=== PATIENT | female | born 1990 | race African-American/Black ===

== ENCOUNTER 2018-08-08 15:41 | Emergency (ER) | payer OTHER ==
[~2018-08-08 15:41] MED LIST: LEVO500T2 PO
== END 2018-08-08 18:06 | disposition left against medical advice (07) ==
LOC: ER 15:41
DX: Z53.21 Procedure and treatment not carried out due to patient leaving prior to being seen by health care provider (principal)

== ENCOUNTER 2020-06-07 10:16 | Observation (INO) | payer OTHER ==
[~2020-06-07] VITALS: Ht 149.9 cm; Wt 53.5 kg
[2020-06-07] MEDS ORDERED: TERBUTALINE SULFATE 1MG/ML VIAL SUBCUT PRN (12:25)
[2020-06-07 12:46] LABS: CLARITY URINE CLEAR (CLEAR); COLOR URINE YELLOW (YELLOW); KETONES URINE NEGATIVE (NEGATIVE); LEUKOCYTE ESTERASE URINE 1+ (NEGATIVE); NITRITE URINE NEGATIVE (NEGATIVE); OCCULT BLOOD URINE TRACE (NEGATIVE); PROTEIN URINE NEGATIVE (NEGATIVE); SPECIFIC GRAVITY URINE 1.009 (1.005-1.030); UROBILINOGEN URINE 0.2 E.U./dL (0.2-1.0)
[2020-06-07 12:47] LABS: BASOPHILS % 0.6 % (0.0-2.0); HEMATOCRIT. 36.8 % (36.0-48.0); HEMOGLOBIN. 11.9 g/dL (12.0-16.0); LYMPHOCYTES % 21.2 % (20.0-50.0); MEAN CORPUSCULAR HEMOGLOBIN 27.4 pg (28.0-32.0); MEAN CORPUSCULAR VOLUME 84.3 fL (81.0-99.0); MEAN PLATELET VOLUME 9.2 fl (7.4-10.4); MONOCYTES % 7.7 % (2.0-8.0); NEUTROPHILS % 69.5 % (40.0-76.0); PLATELET 271 x1000/uL (130-400); RED BLOOD CELL COUNT 4.36 mill/uL (4.2-5.4); RED CELL DISTRIBUTION WIDTH 14.1 % (11.6-14.6)
[2020-06-07 13:01] LABS: *AMPHETAMINES SCREEN URINE NEGATIVE (NEGATIVE); *BARBITURATES SCREEN URINE NEGATIVE (NEGATIVE); *BENZODIAZEPINES SCREEN URINE NEGATIVE (NEGATIVE)
[2020-06-07 13:02] LABS: *COCAINE SCREEN URINE NEGATIVE (NEGATIVE); METHADONE URINE SCREEN NEGATIVE (NEGATIVE)
[2020-06-07 13:04] LABS: OPIATES URINE SCREEN NEGATIVE (NEGATIVE); PHENCYCLIDINE URINE SCREEN NEGATIVE (NEGATIVE)
[2020-06-07 13:09] LABS: CANNABINOID URINE SCREEN PRESUMTIVE POSITIVE (NEGATIVE)
[2020-06-07] MEDS: LACTATED RINGERS 1,000 ML IV SCH (13:54)
[2020-06-07] MEDS ORDERED: PNV1TABL76 MT (15:36)
== END 2020-06-07 15:30 | disposition home or self-care (01) ==
LOC: 8 EST LDRP 10:16 → 8 EST A/PP 13:10
PROVIDERS: ADMIT Obstetrics & Gynecology; ATTEND Obstetrics & Gynecology
DX: O26.893 Other specified pregnancy related conditions, third trimester (principal); R10.11 Right upper quadrant pain; Z3A.34 34 weeks gestation of pregnancy; Z79.899 Other long term (current) drug therapy
CPT/HCPCS: 36415; 59025; 76705; 76805; 76818; 80305; 80349; 81003; 82731; 85025; 96360; 96361; 96372; G0378; J3105; J7120; 99281

== ENCOUNTER 2020-06-18 15:44 | Observation (INO) | payer OTHER ==
[~2020-06-18] VITALS: Ht 147.3 cm; Wt 52.6 kg
[~2020-06-18 15:44] MED LIST changes: -LEVO500T2 PO; +PNV1TABL76 MT
[2020-06-18] MEDS ORDERED: DIPHENHYDRAMINE 25MG CAPSULE PO PRN (17:30)
[2020-06-18 17:44] LABS: CHLORIDE 105 mEq/L (98-107)
== END 2020-06-18 21:15 | disposition home or self-care (01) ==
LOC: 8 EST LDRP 15:44
PROVIDERS: ADMIT Obstetrics & Gynecology; ATTEND Obstetrics & Gynecology
DX: O99.713 Diseases of the skin and subcutaneous tissue complicating pregnancy, third trimester (principal); T78.49XA Other allergy, initial encounter; Z3A.36 36 weeks gestation of pregnancy
CPT/HCPCS: 36415; 59025; 76805; 76818; 80053; 84550; G0378; Q0163; 99281

== ENCOUNTER 2020-07-04 10:37 | Observation (INO) | payer OTHER ==
[~2020-07-04] VITALS: Ht 147.3 cm; Wt 54.4 kg
[2020-07-04] MEDS ORDERED: CEPH250C2 PO (22:43)
== END 2020-07-04 13:30 | disposition home or self-care (01) ==
LOC: 8 EST LDRP 10:37
PROVIDERS: ADMIT Obstetrics & Gynecology; ATTEND Obstetrics & Gynecology
DX: O42.92 Full-term premature rupture of membranes, unspecified as to length of time between rupture and onset of labor (principal); Z3A.38 38 weeks gestation of pregnancy
CPT/HCPCS: 59025; 76805; 76818; G0378; 99281

== ENCOUNTER 2020-07-04 18:31 | Inpatient (IN) | payer OTHER ==
[~2020-07-04] VITALS: Ht 147.3 cm; Wt 53.5 kg
[2020-07-04] MEDS ORDERED: CEPH250C2 PO (22:43)
[2020-07-04] MEDS ORDERED: LIDOCAINE HCL 1% 20ML VIAL (Pyxis) INJ INFIL SCH (22:45)
[2020-07-04] MEDS ORDERED: NALOXONE HCL 0.4 MG/ML 1ML VIAL IM PRN (22:45)
[2020-07-04] MEDS ORDERED: BUTORPHANOL TARTRATE 2 MG/ML VIAL IV PRN (22:45)
[2020-07-04] MEDS ORDERED: DEXT 5%/LR + PITOCIN 20UNITS/L 1,000 ML IV SCH (22:45)
[2020-07-04] MEDS ORDERED: LACTATED RINGERS 1,000 ML IV SCH (22:45)
[2020-07-04] MEDS ORDERED: CARBOPROST TROMETHAMINE 250 MCG/ML AMPUL IM PRN (22:45)
[2020-07-04] MEDS ORDERED: METHYLERGONOVINE MALEATE 0.2 MG/ML IM PRN (22:45)
[2020-07-04] MEDS ORDERED: PENICILLIN G POTASSIUM 5 MMU in DEXT 5% WATER 100 ML IV SCH (23:00)
[2020-07-04 23:29] LABS: BASOPHILS % 0.3 % (0.0-2.0); EOSINOPHILS % 1.1 % (0.0-5.0); HEMATOCRIT. 36.3 % (36.0-48.0); LYMPHOCYTES % 22.3 % (20.0-50.0); MEAN CORPUSCULAR HEMOGLOBIN 27.2 pg (28.0-32.0); MEAN CORPUSCULAR VOLUME 82.4 fL (81.0-99.0); MEAN PLATELET VOLUME 9.3 fl (7.4-10.4); MONOCYTES % 9.2 % (2.0-8.0); NEUTROPHILS % 67.1 % (40.0-76.0); PLATELET 307 x1000/uL (130-400)
[2020-07-04 23:34] LABS: CLARITY URINE CLEAR (CLEAR); COLOR URINE YELLOW (YELLOW); KETONES URINE NEGATIVE (NEGATIVE); LEUKOCYTE ESTERASE URINE TRACE (NEGATIVE); NITRITE URINE NEGATIVE (NEGATIVE); OCCULT BLOOD URINE NEGATIVE (NEGATIVE); PROTEIN URINE NEGATIVE (NEGATIVE); SPECIFIC GRAVITY URINE 1.014 (1.005-1.030)
[2020-07-04 23:46] LABS: *AMPHETAMINES SCREEN URINE NEGATIVE (NEGATIVE); *BARBITURATES SCREEN URINE NEGATIVE (NEGATIVE); *BENZODIAZEPINES SCREEN URINE NEGATIVE (NEGATIVE); *COCAINE SCREEN URINE NEGATIVE (NEGATIVE); PHENCYCLIDINE URINE SCREEN NEGATIVE (NEGATIVE)
[2020-07-04 23:47] LABS: METHADONE URINE SCREEN NEGATIVE (NEGATIVE); OPIATES URINE SCREEN NEGATIVE (NEGATIVE)
[2020-07-04 23:54] LABS: CANNABINOID URINE SCREEN PRESUMTIVE POSITIVE (NEGATIVE)
[2020-07-05] MEDS ORDERED: PENICILLIN G POTASSIUM 5 MMU in SODIUM CHLORIDE 0.9% 100 ML IV SCH ×2
[2020-07-05 00:20] LABS: HEPATITIS B SURFACE ANTIGEN NEGATIVE
[2020-07-05] MEDS ORDERED: FENTANYL CITRATE/PF 50MCG/ML 2ML VIAL ONE ×3 (02:03→16:25)
[2020-07-05] MEDS ORDERED: ROPIVACAINE HCL/PF EPIDURAL 200 ML EPI ONE (03:00)
[2020-07-05] MEDS ORDERED: PENICILLIN G POTASSIUM 2.5 MMU in DEXTROSE 5% WATER 50 ML IV SCH (03:00)
[2020-07-05] MEDS: PENICILLIN G POTASSIUM 2.5 MMU in SODIUM CHLORIDE 0.9% 50 ML IV SCH ×3 (03:26→15:06)
[2020-07-05] MEDS ORDERED: LIDOCAINE HCL 4% CREAM 76GM TUBE TP PRN (08:15)
[2020-07-05 08:22] LABS: INR 0.9; PARTIAL THROMBOPLASTIN TIME 29.2 sec (23.4-31.0); PROTHROMBIN TIME 9.8 sec (9.6-11.0)
[2020-07-05] MEDS ORDERED: ROPIVACAINE HCL/PF EPIDURAL 200 ML EP SCH (16:30)
[2020-07-05] MEDS ORDERED: HEMORRHOIDAL SUPP PR PRN (18:15)
[2020-07-05] MEDS ORDERED: LANOLIN OINT 7GM TUBE TOP PRN (18:15)
[2020-07-05] MEDS ORDERED: IBUPROFEN 400MG TABLET PO PRN (18:15)
[2020-07-05] MEDS ORDERED: BISACODYL 10MG SUPP PR PRN (18:15)
[2020-07-05] MEDS ORDERED: BENZOCAINE/LANOLIN/ALOE VERA SPRAY TOP PRN (18:15)
[2020-07-05] MEDS ORDERED: DEXT 5%/LR + PITOCIN 20UNITS/L 1,000 ML IV SCH (18:15)
[2020-07-05] MEDS ORDERED: GLYCERIN/WITCH HAZEL LEAF MEDICATED PAD TOP PRN (18:15)
[2020-07-05] MEDS: IBUPROFEN 800MG TABLET PO PRN (19:20)
[2020-07-05 20:00] VITALS: BP 114/57
[2020-07-05 20:30] VITALS: BP 118/66
[2020-07-05 21:00] VITALS: BP 107/52
[2020-07-05] MEDS ORDERED: DOCUSATE SODIUM 100MG CAPSULE PO SCH (21:00)
[2020-07-05] MEDS: SIMETHICONE 80MG TABLET CHEW PO SCH (22:00)
[2020-07-05] MEDS: MAGNESIUM/ALUMINUM HYDROXIDE/SIMETHICONE 30ML UDC PO SCH (22:00)
[2020-07-06] MEDS: ACETAMINOPHEN WITH CODEINE 300/30MG TABLET PO PRN ×2 (00:51→23:01)
[2020-07-06 04:30] VITALS: BP 93/57
[2020-07-06 07:03] LABS: BASOPHILS % 0.2 % (0.0-2.0); EOSINOPHILS % 0.5 % (0.0-5.0); HEMATOCRIT. 31.9 % (36.0-48.0); HEMOGLOBIN. 10.3 g/dL (12.0-16.0); LYMPHOCYTES % 19.1 % (20.0-50.0); MEAN CORPUSCULAR HEMOGLOBIN 26.9 pg (28.0-32.0); MEAN CORPUSCULAR VOLUME 83.5 fL (81.0-99.0); MEAN PLATELET VOLUME 9.1 fl (7.4-10.4); MONOCYTES % 7.3 % (2.0-8.0); NEUTROPHILS % 72.9 % (40.0-76.0); PLATELET 272 x1000/uL (130-400); RED BLOOD CELL COUNT 3.82 mill/uL (4.2-5.4); RED CELL DISTRIBUTION WIDTH 14.1 % (11.6-14.6)
[2020-07-06] MEDS: IBUPROFEN 800MG TABLET PO PRN (08:02)
[2020-07-06] MEDS: PRENATAL VIT/FE FUMARATE/FA TABLET PO SCH (08:02)
[2020-07-06] MEDS: FERROUS SULFATE 325MG TABLET PO SCH ×2 (08:02→22:00)
[2020-07-06] MEDS: SIMETHICONE 80MG TABLET CHEW PO SCH (08:20)
[2020-07-06 08:29] VITALS: BP 116/70
[2020-07-06 16:47] VITALS: BP 106/62
[2020-07-06 19:30] VITALS: BP 123/74
[2020-07-06 20:33] LABS: HEMATOCRIT 34.6 % (36.0-48.0); HEMOGLOBIN 11.2 g/dL (12.0-16.0); MEAN CORPUSCULAR VOLUME 83.1 fL (81.0-99.0); PLATELET 318 x1000/uL (130-400); RED BLOOD CELL COUNT 4.17 mill/uL (4.2-5.4); RED CELL DISTRIBUTION WIDTH 13.8 % (11.6-14.6)
[2020-07-07] MEDS ORDERED: IBUP-2030 PO (02:05)
[2020-07-07 04:45] VITALS: BP 132/80
[2020-07-07] MEDS: ACETAMINOPHEN WITH CODEINE 300/30MG TABLET PO PRN (06:00)
[2020-07-07 07:49] VITALS: BP 98/50
[2020-07-07] MEDS: MAGNESIUM/ALUMINUM HYDROXIDE/SIMETHICONE 30ML UDC PO SCH (08:22)
[2020-07-07] MEDS: FERROUS SULFATE 325MG TABLET PO SCH (08:22)
[2020-07-07] MEDS: PRENATAL VIT/FE FUMARATE/FA TABLET PO SCH (08:26)
[2020-07-08 17:11] LABS: CANNABINOID CONFIRMATION URINE Positive (.)
== END 2020-07-07 14:05 | disposition home or self-care (01) | DRG 560 ==
LOC: OBSVTOIN 18:31 → 8EST NSY 18:31 → 8 EST LDRP 19:08 → 8EST 07-05 19:30
PROVIDERS: ADMIT Obstetrics & Gynecology; ATTEND Obstetrics & Gynecology
PROC: 10E0XZZ Delivery of Products of Conception, External Approach (ICD-10-PCS; principal; 2020-07-05)
PROC: 3E0R3BZ Introduction of Anesthetic Agent into Spinal Canal, Percutaneous Approach (ICD-10-PCS; 2020-07-05)
PROC: 00HU33Z Insertion of Infusion Device into Spinal Canal, Percutaneous Approach (ICD-10-PCS; 2020-07-05)
DX: O36.5930 Maternal care for other known or suspected poor fetal growth, third trimester, not applicable or unspecified (principal); O77.0 Labor and delivery complicated by meconium in amniotic fluid; Z20.822 Contact with and (suspected) exposure to COVID-19; D72.829 Elevated white blood cell count, unspecified; O99.12 Other diseases of the blood and blood-forming organs and certain disorders involving the immune mechanism complicating childbirth; Z3A.39 39 weeks gestation of pregnancy; Z37.0 Single live birth; Z79.899 Other long term (current) drug therapy
CPT/HCPCS: 36415; 80305; 80349; 81003; 85025; 85027; 86592; 86703; 86762; 86850; 86900; 87340; 87426; 99281; J0595; J2540; J2590; J2795; J3010; J7050; J7060